=== PATIENT | female | born 1985 | race Caucasian/White ===

== ENCOUNTER 2024-11-09 09:57 | Emergency (ER) | payer SELFPAY ==
[~2024-11-09] VITALS: Ht 152.4 cm; Wt 56.7 kg
[2024-11-09 10:03] VITALS: PULSE 92; RESP 16; TEMP 99; O2SAT 99
[2024-11-09] MEDS: DEXAMETHASONE 4 MG TAB PO STA (10:27)
[2024-11-09] MEDS ORDERED: SINGULAIR10 MG PO (10:27)
== END 2024-11-09 11:10 | disposition home or self-care (01) ==
LOC: ER 10:06
DX: R50.9 Fever, unspecified (principal); J06.9 Acute upper respiratory infection, unspecified; R05.9 Cough, unspecified; F41.9 Anxiety disorder, unspecified
CPT/HCPCS: 99282; J8540